=== PATIENT | female | born 1990 | race Caucasian/White ===

== ENCOUNTER 2017-03-20 00:05 | Emergency (ER) | payer BC ==
[~2017-03-20] VITALS: Ht 162.6 cm; Wt 69.2 kg
[2017-03-20 00:09] VITALS: TEMP 36.3; Ht 162.6 cm; Wt 69.2 kg
--- NOTE | 2017-03-20 00:19 | EMERGENCY ROOM VISIT NOTE ---
History Report prepared by Nick: Alvin Murray Under the Supervision of: Edy PetersO. First contact with patient: 00:15 Chief Complaint: NAUSEA Stated Complaint: NAUSEA Nursing Triage Summary: Pt reports she was at a [employer] and had about 5 drinks. Pt reports she has vomited x4 and has nausea. History of Present Illness The patient is a 26 year old female who presents to the Emergency Room with complaints of persistent nausea that started earlier this evening. She says that she was at a republican and had 2 glasses of wine, and perhaps around 4 shots of whiskey. She states that she is unsure of the amount of whiskey, but notes that she has drank before around this amount and has not had symptoms like this before. The patient says that she has vomited 4 times tonight, without any blood. She states that she got to the point where she was barely able to stand on her own due to her weakness. The patient adds that she got a bit short of breath during her vomiting episodes. She has not been able to tolerate any PO here. The patient denies any loss of consciousness, chest pain, fevers, chills, abdominal pain, urinary symptoms, diarrhea, constipation, hematochezia, or any falls. She states that her last menstrual period was yesterday, and she just started using her NUV[employer] ring. She notes no recent travel history of new foods. Source of History: patient Onset: Earlier this evening Position: other (global - nausea) Timing: other (persistent) Associated Symptoms: + SOB, + nausea, + vomiting, No LOC, No fevers, No chest pain, No abdominal pain, No hematochezia, No diarrhea (or constipation), No urinary symptoms Note: No other associated symptoms noted. Review of Systems See HPI for pertinent positives & negatives. A total of 10 systems reviewed and were otherwise negative. Past Medical & Surgical Medical Problems: (1) No chronic diseases present Family History No pertinent family history Social History Smoking Status: Never Smoker Smokeless Tobacco Use: No Alcohol Use: occasionally Drug Use: none Current/Historical Medications Scheduled Etonogestrel/Ethinyl Estradiol (Nuvaring), 1 EA VAGRING MONTHLY Allergies Coded Allergies: No Known Allergies (Unverified , 03/20/17) Physical Exam Vital Signs Date Time Temp Pulse Resp B/P (MAP) Pulse Ox O2 Delivery O2 Flow Rate FiO2 12/8/17 02:20 90 18 117/62 97 Room Air 03/20/17 02:14 81 18 129/80 99 Room Air 03/20/17 00:09 36.3 92 20 120/84 100 Room Air Physical Exam GENERAL: alert, well appearing, well nourished, no distress, non-toxic EYE EXAM: normal conjunctiva, PERRL and EOM's grossly intact OROPHARYNX: no exudate, no erythema, lips, buccal mucosa, and tongue normal and mucous membranes are moist NECK: supple, no nuchal rigidity, no adenopathy, non-tender LUNGS: Clear to auscultation. Normal chest wall mechanics HEART: no murmurs, S1 normal and S2 normal ABDOMEN: abdomen soft, non-tender, normo-active bowel sounds, no masses, no rebound or guarding. BACK: Back is symmetrical on inspection and there is no deformity, no midline tenderness, no CVA tenderness. SKIN: no rashes and no bruising UPPER EXTREMITIES: upper extremities are grossly normal. LOWER EXTREMITIES: No pitting edema. NEURO EXAM: Normal sensorium, cranial nerves II-XII grossly intact, normal speech, no gross weakness of arms, no gross weakness of legs. Medical Decision & Procedures Medications Administered Medications (Trade) Dose Ordered Sig/Rama Route Start Time Stop Time Status Last Admin Dose Admin Ondansetron HCl (Zofran Odt) 4 mg ONE ONCE PO 03/20/17 00:45 03/20/17 00:46 DC 03/20/17 00:45 4 MG Ondansetron HCl (Zofran Odt) 4 mg ONE ONCE PO 03/20/17 01:30 03/20/17 01:31 DC 03/20/17 01:34 4 MG ED Course 0044: The patient was evaluated in room B5. A complete history and physical exam was performed. 0045: Ordered Zofran Odt 4 mg PO. 0135: I reevaluated and updated the patient. Medical Decision Differential diagnosis: Etiologies such as gastroenteritis, food borne illness, infections, appendicitis , diverticulitis, inflammatory bowel disease, obstruction, GI bleed, biliary pathology, as well as others were entertained. Pt concerned bc she states she didn't feel that drunk and felt she was vomiting disproportionately. Improved with zofran here. No other preceeding sx. No sx prior to etoh use. VS stable. No persistent vomiting here. AFter 2nd zofran pt asking to leave. Was tolerating ice chips. Discussed with her sx to watch/ return for, ddx, she verbalized understanding and was agreeable with plan. Medication Reconcilliation Current Medication List: was personally reviewed by me Blood Pressure Screening Patient's blood pressure: Normal blood pressure Impression Primary Impression: Alcohol use Additional Impression: Nausea & vomiting Scribe Attestation The scribe's documentation has been prepared under my direction and personally reviewed by me in its entirety. I confirm that the note above accurately reflects all work, treatment, procedures, and medical decision making performed by me. Departure Information Dispostion Home / Self-Care Referrals No Doctor, Assigned (PCP) Patient Instructions [facility] Additional Instructions Please sip clear liquids at frequent intervals to stay well-hydrated. Please eat a bland in light diet as tolerated until you're condition improves. Please drink responsibly and in a safe location. Do not drink and drive. If you have any recurrent episodes of nausea or vomiting, develop fevers, abdominal pain, diarrhea, chest pain, passing out, or you've any other new concerns, please return the emergency room. Problem Qualifiers Additional Impression: Nausea & vomiting Vomiting type: unspecified Vomiting Intractability: unspecified Qualified Codes: R11.2 - Nausea with vomiting, unspecified
[2017-03-20] MEDS ORDERED: ONDANSETRON 4MG OD TAB PO ONE ×2 (00:45→01:30)
[2017-03-20] MEDS ORDERED: ETONMIS VAGRING (01:37)
[2017-03-20 02:20] VITALS: BP 117/62; PULSE 90; O2SAT 97
== END 2017-03-20 02:22 | disposition home or self-care (01) ==
LOC: C.EDB 00:06
DX: R11.2 Nausea with vomiting, unspecified (principal); F10.10 Alcohol abuse, uncomplicated